=== PATIENT | male | born 2000 | race Caucasian/White ===

== ENCOUNTER → 2020-12-06 | Outpatient (CLI) | payer OTHER ==
--- NOTE | 2020-12-07 01:50 | MR ---
EXAMINATION TYPE: MR ankle RT wo con DATE OF EXAM: 12/06/2020 COMPARISON: None HISTORY: Right ankle sprain 2 mos ago, limited ROM Multiplanar multiecho imaging of the right ankle was performed without contrast. Achilles tendon is intact. Plantar fascia appears intact. Ankle mortise is anatomic. I see no bony de structive process. There is no evidence of a fracture. The collateral ligaments are intact. Medial an d lateral flexor tendons of the ankle appear intact. There is 1.5 cm exostosis on the anterior distal fibula. Subtalar joint appears normal. IMPRESSION: No evidence of a fracture. No ligamentous or tendon tear. Exostosis on the anterior distal fibula appears benign.
== END | disposition home or self-care (01) ==
LOC: RADMRIMAIN 18:07
PROVIDERS: ATTEND Nurse Practitioner Family
DX: S93.401A Sprain of unspecified ligament of right ankle, initial encounter (principal)